=== PATIENT | female | born 1950 | race Caucasian/White ===

== ENCOUNTER 2018-03-22 12:40 | Outpatient (REF) | payer MEDICARE, BC, SELFPAY ==
[2018-03-22 22:12] LABS: Hemoglobin A1C 5.5 % (4.5-6.2)
== END 2018-03-22 13:00 ==
LOC: NCHCN 12:40
PROVIDERS: PCP Family Medicine; Visit Provider Family Medicine
DX: E03.9 Hypothyroidism, unspecified (principal); R73.02 Impaired glucose tolerance (oral)
CPT/HCPCS: 83036; 84443

== ENCOUNTER 2020-02-13 19:00 | Outpatient (REF) | payer MEDICARE, BC, SELFPAY ==
[2020-02-13 21:13] LABS: Hemoglobin A1C 5.4 % (3.8-5.6)
[2020-02-13 21:44] LABS: Calculated LDL 96 mg/dL (<100); Cholesterol 173 mg/dL (<200); HDL Cholesterol 52 mg/dL (40-60); TSH (W/Ref FT4) 0.03 uIU/mL (0.36-3.74); Triglyceride 128 mg/dL (<150)
[2020-02-13 22:02] LABS: FREE T4 1.66 ng/dL (0.76-1.46)
== END 2020-02-13 19:20 ==
LOC: NCHCN 19:00
PROVIDERS: PCP Family Medicine; Visit Provider Registered Nurse
DX: E03.9 Hypothyroidism, unspecified (principal); E78.5 Hyperlipidemia, unspecified; R73.03 Prediabetes
CPT/HCPCS: 80061; 83036; 84439; 84443

== ENCOUNTER 2020-05-01 10:22 | Outpatient (REF) | payer MEDICARE, BC, SELFPAY ==
[2020-05-01 21:21] LABS: HCT 42.4 % (36.0-46.0); MCH 27.7 pg (27.0-33.0); MCV 83.8 fL (80-95); MPV 9.9 fL (8.0-11.0); Platelet Count 241 10^3/uL (130-400); RBC 5.06 10^6/uL (3.93-5.22); RDW 13.2 % (11.7-14.6); RDW-SD 40.1 fL; WBC 4.45 10^3/uL (4.4-10.8)
[2020-05-01 22:11] LABS: ALT 31 U/L (14-59); AST 18 U/L (15-37); Albumin 3.5 g/dL (3.4-5.0); Alkaline Phosphatase 75 U/L (46-116); Anion Gap 9.9 mmol/L (3-11); BUN 11 mg/dL (7-18); Bilirubin, Total 0.4 mg/dL (0.2-1.0); CO2 26.1 mmol/L (21.0-32.0); CREATININE 0.69 mg/dL (0.55-1.02); Calcium 8.6 mg/dL (8.5-10.1); Chloride 103 mmol/L (98-107); FREE T4 1.48 ng/dL (0.76-1.46); Glucose 135 mg/dL (74-106); Potassium 4.1 mmol/L (3.5-5.1); Sodium 139 mmol/L (136-145); TSH 0.05 uIU/mL (0.36-3.74); Total Protein 6.4 g/dL (6.4-8.2)
[2020-05-12 13:10] LABS: T3,Free 3.2 pg/mL (2.8-4.4)
== END 2020-05-01 10:42 ==
LOC: LBN 10:22
PROVIDERS: PCP Family Medicine; Visit Provider Family Medicine
DX: E03.9 Hypothyroidism, unspecified (principal); R53.83 Other fatigue
CPT/HCPCS: 80053; 85027; 84439; 84443; 84481

== ENCOUNTER 2020-12-15 11:34 | Outpatient (REF) | payer MEDICARE, SELFPAY ==
[2020-12-15 21:44] LABS: HCT 41.1 % (36.0-46.0); HGB 13.5 g/dL (11.2-15.7); MCH 28.4 pg (27.0-33.0); MCHC 32.8 % (32.0-36.0); MCV 86.5 fL (80-95); MPV 10.4 fL (8.0-11.0); Platelet Count 238 10^3/uL (130-400); RBC 4.75 10^6/uL (3.93-5.22); RDW 13.5 % (11.7-14.6); RDW-SD 42.8 fL; WBC 4.44 10^3/uL (4.4-10.8)
[2020-12-15 22:04] LABS: ALT 26 U/L (14-59); AST 10 U/L (15-37); Albumin 3.5 g/dL (3.4-5.0); Alkaline Phosphatase 65 U/L (46-116); Anion Gap 10.2 mmol/L (3-11); BUN 12 mg/dL (7-18); Bilirubin, Total 0.4 mg/dL (0.2-1.0); CO2 26.8 mmol/L (21.0-32.0); CREATININE 0.7 mg/dL (0.55-1.02); Calcium 8.7 mg/dL (8.5-10.1); Chloride 104 mmol/L (98-107); FREE T4 1.09 ng/dL (0.76-1.46); Glucose 104 mg/dL (74-106); Potassium 4.5 mmol/L (3.5-5.1); Sodium 141 mmol/L (136-145); TSH 1.92 uIU/mL (0.36-3.74); Total Protein 6.4 g/dL (6.4-8.2)
[2020-12-16 16:33] LABS: T3,Free 3.3 pg/mL (2.8-5.3)
== END 2020-12-15 11:35 | disposition home or self-care (01) ==
LOC: NCHCN 11:34
PROVIDERS: PCP Family Medicine; Visit Provider Family Medicine
DX: E03.9 Hypothyroidism, unspecified (principal); K76.0 Fatty (change of) liver, not elsewhere classified; M79.7 Fibromyalgia; E78.5 Hyperlipidemia, unspecified
CPT/HCPCS: 80053; 85027; 84439; 84443; 84481

== ENCOUNTER 2022-02-10 15:36 | Outpatient (REF) | payer MEDICARE, SELFPAY ==
[2022-02-10 17:11] LABS: TSH (W/Ref FT4) 1.63 uIU/mL (0.36-3.74)
[2022-02-10 17:13] LABS: Hemoglobin A1C 5.9 % (<5.7)
== END 2022-02-10 15:37 | disposition home or self-care (01) ==
LOC: NCHCN 15:36
PROVIDERS: PCP Family Medicine; Visit Provider Family Medicine
DX: E03.9 Hypothyroidism, unspecified (principal); E66.9 Obesity, unspecified; Z13.1 Encounter for screening for diabetes mellitus
CPT/HCPCS: 83036; 84443

== ENCOUNTER 2023-02-01 10:09 | Outpatient (REF) | payer MEDICARE, SELFPAY | END 2023-02-01 10:10 | disposition home or self-care (01) | LOC: NCHCN 10:09 | PROVIDERS: PCP Family Medicine; Visit Provider Family Medicine | DX: L02.213 Cutaneous abscess of chest wall (principal) | CPT/HCPCS: 87070; 87205 ==

== ENCOUNTER 2023-03-03 16:46 | Outpatient (REF) | payer MEDICARE, SELFPAY ==
--- NOTE | 2023-03-03 08:30 | SKI_PTH ---
PATIENT: Ekaterina Savage LOC: [facility] U#:[id number] AGE/SX: 72/F ROOM: RE03/03/[address]: Sue Angulo : 1950 BED: DIS: 03/03/2023 SPEC #: [id number] RECD: 03/03/23 16:52 STATUS: LOLA REJes #: [id number] TAISHA: 03/03/23 08:[address]: Sue Angulo DEPT: Surgical Specimen RECD BY: Kathya Smith Tissues: 1 - SKIN BIOPSY(SHAVE/PUNCH) Procedures: SKIN LEVEL 4 Comments: [id number]
== END 2023-03-03 16:47 | disposition home or self-care (01) ==
LOC: LBN 16:46
PROVIDERS: PCP Family Medicine; Visit Provider Family Medicine
DX: D48.5 Neoplasm of uncertain behavior of skin (principal); C44.92 Squamous cell carcinoma of skin, unspecified
CPT/HCPCS: 88305

== ENCOUNTER 2023-03-07 20:14 | Outpatient (REF) | payer MEDICARE, SELFPAY | END 2023-03-07 20:15 | disposition home or self-care (01) | LOC: NCHCN 20:14 | PROVIDERS: PCP Family Medicine; Visit Provider Family Medicine | DX: R39.89 Other symptoms and signs involving the genitourinary system (principal); R82.79 Other abnormal findings on microbiological examination of urine | CPT/HCPCS: 87086 ==

== ENCOUNTER 2024-02-09 15:19 | Outpatient (REF) | payer MEDICARE, SELFPAY ==
--- NOTE | 2024-02-09 10:20 | SKI_PTH ---
PATIENT: Ekaterina Savage LOC: [facility] U#:[id number] AGE/SX: 73/F ROOM: RE02/09/[address]: Sue Angulo : 1950 BED: DIS: 02/09/2024 SPEC #: [id number] RECD: 02/09/24 16:52 STATUS: LOLA MORA #: [id number] TAISHA: 02/09/24 10:[address]: Sue Angulo DEPT: Surgical Specimen RECD BY: Kathya Smith Tissues: 1 - SKIN BIOPSY(SHAVE/PUNCH) Procedures: SKIN LEVEL 4 Comments: [id number]
== END 2024-02-09 15:20 | disposition home or self-care (01) ==
LOC: NCHCN 15:19
PROVIDERS: PCP Family Medicine; Visit Provider Family Medicine
DX: L21.9 Seborrheic dermatitis, unspecified (principal)
CPT/HCPCS: 88305